=== PATIENT | male | born 1970 | race Caucasian/White ===

== ENCOUNTER → 2018-07-05 | Outpatient (CLI) | payer OTHER ==
--- NOTE | 2018-07-05 08:59 | CT ---
EXAMINATION TYPE: CT lumbar spine wo con DATE OF EXAM: 07/05/2018 COMPARISON: None HISTORY: 48-year-old male Low back pain TECHNIQUE: Contiguous axial scanning of the lumbar spine without IV contrast. Coronal and sagittal re constructions performed. CT DLP: 2278 mGycm Automated exposure control for dose reduction was used. FINDINGS: 1 cm gallstone incidentally seen. No prevertebral or paravertebral soft tissue abnormality. Tiny fatty umbilical hernia seen on the sagittal series, image 16. Mild degenerative disc disease with disc bulging mid to lower lumbar spine. Minimal disc interspace n arrowing at L4-L5. Mild facet arthropathy L4-L5 and L5-S1. Vertebral body heights are preserved. Trace grade 1 retrolisthesis seen at L3-L4 and L4-L5. By CT, no significant spinal canal stenosis identified. On the left, changes resulting mild neural foraminal stenosis at both L4-L5 and L5-S1. On the right, changes result in mild neuroforaminal stenosis at L4-L5 and moderate at L5-S1. IMPRESSION: 1. MILD DEGENERATIVE DISC DISEASE L3-S1 LEVELS WITH BULGING DISCS. 2. MILD FACET ARTHROPATHY LOWER LUMBAR SPINE. TRACE GRADE 1 RETROLISTHESES ARE PRESENT AT L3-L4 AND L 4-L5. 3. VARIABLE MILD NEUROFORAMINAL STENOSES AT BOTH L4-L5 AND L5-S1, MODERATE ON THE RIGHT AT L5-S1. 4. NO CANAL COMPROMISE BY CT. 5. A 1 CM GALLSTONE INCIDENTALLY SEEN.
== END ==
LOC: RADCTMAIN 08:32
PROVIDERS: ATTEND Family Medicine
DX: M99.74 Connective tissue and disc stenosis of intervertebral foramina of sacral region (principal); M51.26 Other intervertebral disc displacement, lumbar region; M51.36 Other intervertebral disc degeneration, lumbar region; M46.96 Unspecified inflammatory spondylopathy, lumbar region
CPT/HCPCS: 72131

== ENCOUNTER → 2019-06-07 | Outpatient (CLI) | payer OTHER ==
[2019-06-07 14:03] VITALS: BP 132/76; PULSE 84; RESP 18
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
== END ==
LOC: PNWHC3 13:50
PROVIDERS: ATTEND Specialist
DX: G89.29 Other chronic pain (principal); M51.36 Other intervertebral disc degeneration, lumbar region; M47.816 Spondylosis without myelopathy or radiculopathy, lumbar region; M46.96 Unspecified inflammatory spondylopathy, lumbar region; F17.200 Nicotine dependence, unspecified, uncomplicated; Z79.899 Other long term (current) drug therapy; Z79.1 Long term (current) use of non-steroidal anti-inflammatories (NSAID)
CPT/HCPCS: 99211

== ENCOUNTER 2022-09-25 17:49 | Emergency (ER) | payer OTHER ==
[2022-09-25 17:57] VITALS: TEMP 98
[2022-09-25 18:04] VITALS: BP 142/85; PULSE 95; RESP 18
[2022-09-25] MEDS ORDERED: GELATIN SPONGE,ABSORB (SMALL) 1 EACH SPONGE TOPICAL STA (18:08)
[2022-09-25] MEDS ORDERED: DIPH,PERTUS(ACELL)TETVAC-LF 0.5 ML VIAL IM ONE (18:09)
[2022-09-25] MEDS ORDERED: MORPHINE SULFATE 4 MG/ML SYRINGE IM STA (18:15)
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
--- NOTE | 2022-09-25 18:59 | XR ---
PROCEDURE: XR finger RT - 3V DATE AND TIME: 09/25/2022 6:34 PM CLINICAL INDICATION: Pain; 5th digit TECHNIQUE: Department protocol COMPARISON: None FINDINGS: The tip of the fifth finger shows an oblique cut off of the distalmost tuft of the distal phalanx and overlying soft tissues. There is abutment of the atmospheric air with the distal phalanx cortex. There is soft tissue swelling. No radiopaque foreign bodies. Joints are intact. IMPRESSION: Soft tissue/tuft tip lacerated injury.
[2022-09-25] MEDS ORDERED: ACET/COD 300 MG/30 MG STARTER PACK 6 TAB BTL PO STA (19:15)
[2022-09-25] MEDS ORDERED: CEPHALEXIN 500MG STARTER PACK 4 CAP BTL PO STA (19:15)
== END 2022-09-25 19:30 | disposition home or self-care (01) ==
LOC: EC 17:49
DX: S61.316A Laceration without foreign body of right little finger with damage to nail, initial encounter (principal); M19.90 Unspecified osteoarthritis, unspecified site; F41.9 Anxiety disorder, unspecified; F32.A Depression, unspecified; F12.90 Cannabis use, unspecified, uncomplicated; Z79.899 Other long term (current) drug therapy; Z23 Encounter for immunization; W26.8XXA Contact with other sharp object(s), not elsewhere classified, initial encounter
CPT/HCPCS: 73140; 90715; 99283; 90471; 96372; J2270

== ENCOUNTER 2024-02-06 11:58 | Emergency (ER) | payer OTHER ==
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
[2024-02-06] MEDS: ORPHENADRINE 30 MG/ML 2 ML VIAL IM STA (13:02)
[2024-02-06 13:23] VITALS: TEMP 98.1
--- NOTE | 2024-02-06 13:26 | XR ---
Lumbar spine. HISTORY: Back pain following injury. COMPARISON: None TECHNIQUE: 3 views lumbar spine were obtained. FINDINGS: The lumbar vertebral segments are normal in height and alignment and there is no fracture or subluxat ion. The disc spaces are well preserved. The visualized sacrum and SI joints normal. There is a gallstone. There is an unhealed fracture of the right 12th rib. IMPRESSION: 1. Unremarkable lumbar spine. 2. Gallstone. 3. unhealed fracture of the right 12th rib
[2024-02-06 14:12] VITALS: BP 128/76; PULSE 98; RESP 18
== END 2024-02-06 13:48 | disposition home or self-care (01) ==
LOC: EC 11:58
DX: M62.830 Muscle spasm of back (principal); F17.200 Nicotine dependence, unspecified, uncomplicated; V89.2XXA Person injured in unspecified motor-vehicle accident, traffic, initial encounter; Y92.410 Unspecified street and highway as the place of occurrence of the external cause
CPT/HCPCS: 72100; 99284; 96372; J2360

== ENCOUNTER 2024-12-06 14:00 | Emergency (ER) | payer OTHER ==
[2024-12-06 14:09] VITALS: RESP 18
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
[2024-12-06] MEDS: SODIUM CHLORIDE 0.9% 1,000 ML IV ONE ×2 (14:24→16:02)
[2024-12-06] MEDS: ONDANSETRON 4 MG/2 ML VIAL IVP STA (14:25)
[2024-12-06] MEDS: MORPHINE SULFATE 4 MG/ML SYRINGE IV STA (14:26)
[2024-12-06] MEDS ORDERED: SODIUM CHLORIDE 0.9% 1,000 ML IV SCH (14:30)
[2024-12-06 15:00] LABS: INR 1.2 (<1.2); Prothrombin Time 12.9 sec (10.0-12.5)
[2024-12-06 15:01] LABS: Partial Thromboplastin Time 23.8 sec (22.0-30.0)
[2024-12-06 15:06] LABS: AST 75 U/L (17-59); African American GFR (CKD) 31 (>60 ml/min/1.73 sqM); Albumin 2.1 g/dL (3.5-5.0); Alcohol <10 mg/dL; Alkaline Phosphatase 250 U/L (38-126); Anion Gap 14 mmol/L; Blood Urea Nitrogen 75 mg/dL (9-20); Calcium 8.7 mg/dL (8.4-10.2); Carbon Dioxide 23 mmol/L (22-30); Chloride 91 mmol/L (98-107); Glucose 111 mg/dL (74-99); Lactic Acid, Venous 6.5 mmol/L (0.7-2.0); Magnesium 2.2 mg/dL (1.6-2.3); Non-African American GFR(CKD) 26 (>60 ml/min/1.73 sqM); Phosphorus 5.7 mg/dL (2.5-4.5); Potassium 3.6 mmol/L (3.5-5.1); Sodium 128 mmol/L (137-145); Total Bilirubin 5.5 mg/dL (0.2-1.3); Total Protein 5.4 g/dL (6.3-8.2)
[2024-12-06 15:11] LABS: Anisocytosis Slight; HCT 46.6 % (39.0-53.0); HGB 15.1 gm/dL (13.0-17.5); MCHC 32.5 g/dL (31.0-37.0); MCV 92.3 fL (80.0-100.0); Mean Platelet Volume 11.1; RBC 5.05 m/uL (4.30-5.90); RDW 16.4 % (11.5-15.5)
[2024-12-06 15:13] LABS: NT-Pro-B-Type Natriuretic Pept 839 pg/mL
[2024-12-06 15:36] LABS: ALT 33 U/L (4-49)
[2024-12-06 16:15] LABS: Band Neutrophils % 8 %; Lymphocytes # (M) 0.75 k/uL (1.0-4.8); Metamyelocytes # (M) 0.15 k/uL (0); Metamyelocytes % 1 %; Monocytes # (M) 1.65 k/uL (0-1.0); Myelocytes # (M) 0.15 k/uL (0); Myelocytes % 1 %; Neutrophils % (M) 75 %; Nucleated Red Blood Cells 0 /100 WBC (0-0); Total Cells Counted 200; Toxic Vacuolation Present
[2024-12-06 16:16] LABS: Large Platelets Present; Polychromasia Present
[2024-12-06 16:18] LABS: Platelet Count 19 k/uL (150-450)
[2024-12-06] MEDS ORDERED: VANCOMYCIN IV PER PHARMACY 1 EACH MISC MISCELLANE PRN (16:35)
--- NOTE | 2024-12-06 16:40 | CT ---
EXAMINATION TYPE: CT abdomen pelvis wo con DATE OF EXAM: 12/06/2024 COMPARISON: None CLINICAL INDICATION: Male, 54 years old with history of pain; PHH, abdominal pain TECHNIQUE: CT scan of the abdomen and pelvis is performed without oral or IV contrast. CT DLP: 820.[address] CTDI: mGy Automated exposure control for dose reduction was used. Findings: There are multiple innumerable pulmonary nodules the largest nodule in the right lower lobe is solid and measures 2.5 cm. The largest nodule in the left lower lobe is 5.6 x 3.9 cm and appears necrotic w ith an air-fluid level. There are partially consolidative infiltrates in the right lower lobes accounting technician iorly possibly indicating acute pneumonic infiltrates. There is a gallstone but no gallbladder distention, wall thickening or pericholecystic fluid. There i s no biliary ductal dilatation. There is marked hepatomegaly and mild splenomegaly there are no adrenal masses or pancreatic masses. There is no renal calcification or hydronephrosis. The bowel loops are normal in caliber. No dilatation or obstruction. There is no free intraperitoneal air or fluid. There is a marked swelling of the left medial thigh musculature with multiple collections of air scat tered throughout. There is air within the iliopsoas musculature and a discrete collection of air with air-fluid level consistent with an iliopsoas abscess. There is mild hazy density in the subcutaneous fat of the medial left thigh. The findings are consistent with acute infection possibly necrotizing fasciitis. There is a left hip prosthesis. There are no focal osseous lesions. IMPRESSION: 1. Multiple innumerable lung nodules in the visualized lung bases as described above with small bibas ilar infiltrates. Findings are highly suspicious for pneumonia with metastatic disease. 2. Marked hepatomegaly and mild splenomegaly. 3. Swelling and air in the medial left thigh raising the question of an acute infectious process like ly necrotizing fasciitis. 4. Left iliopsoas abscess. 5.. Cholelithiasis. The ER physician was notified as important finding on 12/06/2024 at 4:35PM [facility] Tracy Yadav, Workstation: [facility], 12/06/2024 4:37 PM
[2024-12-06] MEDS: LACTATED RINGERS 1,000 ML IV ONE (16:55)
[2024-12-06] MEDS: PIPERACILLIN-TAZOBACTAM 3.375 GM in SODIUM CHLORIDE 0.9% 100 ML IVPB STA (16:59)
[2024-12-06] MEDS: VANCOMYCIN 1,500 MG in SODIUM CHLORIDE 0.9% 500 ML 500 ML IVPB ONE (17:14)
[2024-12-06 17:20] VITALS: BP 110/61; PULSE 102; TEMP 98.4
== END 2024-12-06 17:20 | disposition other institution (70) ==
LOC: EC 14:00
DX: E72.20 Disorder of urea cycle metabolism, unspecified (principal); E86.0 Dehydration; E87.1 Hypo-osmolality and hyponatremia; K68.12 Psoas muscle abscess; N17.9 Acute kidney failure, unspecified; M72.6 Necrotizing fasciitis; M62.82 Rhabdomyolysis; C78.00 Secondary malignant neoplasm of unspecified lung; E43 Unspecified severe protein-calorie malnutrition; R00.0 Tachycardia, unspecified; F17.200 Nicotine dependence, unspecified, uncomplicated
CPT/HCPCS: 36415; 93005; 83880; 80053; 82140; 82550; 83605; 83735; 84100; 84443; 84484; 85025; 85610; 85730; 87040; 74176; 99285; 96365; 96375; 96361 ×2; G0480; J2543; J3370; J2270; J2405; 80320